=== PATIENT | male | born 1975 | race Caucasian/White ===

== ENCOUNTER 2024-01-07 09:04 | Emergency (ER) | payer OTHER, SELFPAY ==
[2024-01-07 09:09] VITALS: BP 147/107
[2024-01-07 09:33] LABS: % Basophils 0.3 % (0-2); % Eosinophils 4.1 % (0-6); % Immature Granulocytes 0.2 % (0-0.5); % Lymphocytes 20.4 % (20.5-51.1); Absolute Eosinophils 0.4 10^3/uL (0-0.7); Absolute Lymphocytes 1.8 10^3/uL (1.2-3.4); Absolute Monocytes 0.8 10^3/uL (0.1-0.6); Absolute Neutrophils 5.8 10^3/uL (1.4-6.5); Hemoglobin 15.2 g/dL (13.0-18.0); Mean Corp Hgb Conc. 35.3 g/dL (33.0-37.0); Mean Corpuscular Hgb 32.1 pg (27.0-31.0); Mean Corpuscular Volume 90.9 fL (80.0-94.0); Nucleated Red Blood Cells % 0 % (-); Platelet Count 258 10^3/uL (130-400); Red Blood Cell Count 4.73 10^6/uL (4.70-6.10); Red Cell Dist. Width 11.9 % (11.5-14.5); White Blood Cell Count 8.8 10^3/uL (4.8-10.8)
--- NOTE | 2024-01-07 09:54 | ED.GENMED ---
History of Present Illness
General
Chief Complaint: Chest Pain
Time Seen by Provider: 01/07/24 09:53
History of Present Illness
History of Present Illness:
TIME OF INITIAL ENCOUNTER: 10 AM
HPI: 2 days ago the patient started having pleuritic central chest discomfort. He does not necessarily have any shortness of breath. He has a history of high blood pressure, is a former smoker, and has an elevated BMI. His tried a DM
containing medication last night although the patient denies any significant cough or congestion. Not taking any NSAIDs. He has no PE risk factors.
EXAM:
GENERAL: Well appearing in no distress, elevated BMI noted
HEENT: Moist oral mucosa
CARDIOVASCULAR: No murmurs, normal heart rate, regular rhythm, No chest wall tenderness
PULMONARY: No respiratory distress, breath sounds are clear and equal
ABDOMEN: Soft with no peritoneal signs, no tenderness
NEUROLOGIC: Excellent strength all extremities, no coordination deficits
PSYCHIATRIC: Appropriate mental status, normal insight and judgement
EXTREMITIES: Nontender, no edema, moves all extremities equally
SKIN: No rash, no lesions
NUMBER AND COMPLEXITY OF PROBLEMS ADDRESSED AT THE ENCOUNTER
� Chronic conditions affecting care: High blood pressure
� Acute Exacerbation and/or Progression of Chronic Illness: This is an acute problem
� Differential Diagnosis includes: Musculoskeletal chest wall pain, anxiety, ACS unlikely, PE unlikely, pneumonia unlikely, malignancy unlikely
AMOUNT AND/OR COMPLEXITY OF DATA TO BE REVIEWED AND ANALYZED
� I performed an independent evaluation of and my interpretation is:
EKG: Sinus 85, no acute ST abnormality, no old to compare
CT:
X-rays: Chest x-ray unremarkable
Laboratory Studies: CBC normal, chemistries and troponin also unremarkable, D-dimer negative
Other:
� Review of other/old records: I reviewed old records, the patient had umbilical hernia repair in 2007
� Clinical information was obtained by an independent historian: I spoke to the at bedside
� Prescriptions/Medications Considered but not given:
� Further testing considered but not performed:
RISK OF COMPLICATIONS AND/OR MORBIDITY OR MORTALITY OF PATIENT MANAGEMENT
� Social determinants of health affecting care: Lives at home
� Discussion with other providers:
� Escalation of care including admission/observation vs risk of discharge considered: The patient presents with 2 days of intermittent pleuritic chest comfort. He is a former smoker.
ANY OTHER UPDATES:
12:30 PM: The patient was given Motrin earlier. I reassessed the patient. No further symptoms however the patient does have a few cardiac risk factors therefore I recommend he follows up with cardiology.
Phy Exam
Physical Exam
Physical Exam:
See HPI
Scores
Heart Score for Chest Pain Patients
STEMI patient?: Not applicable
Course
Orders/Labs/Results
Orders:
Orders
01/07/24 09:04
ECG [Electrocardiogram (*1)] Urgent
Reason for Study: Chest Pain
01/07/24 09:05
EKG- Treatment ONCE
01/07/24 09:25
Complete Blood Count/With Diff Urgent
Comprehensive Metabolic Panel Urgent
Troponin I Urgent
01/07/24 10:00
Ibuprofen [Motrin] 800 mg PO NOW STA
01/07/24 10:01
CR Chest - 2 Views Urgent
Comment:
Reason For Exam: central pleuritic pain former smoker
01/07/24 10:31
D-Dimer Urgent
Abnormal Lab Results
01/07/24
09:25
MCH 32.1 H pg
(27.0-31.0)
Absolute Monos (auto) 0.8 H 10^3/uL
(0.1-0.6)
Lymphocytes % 20.4 L %
(20.5-51.1)
Glucose 116 H mg/dl
(70-99)
01/07/24 09:25
01/07/24 09:25
Vital Signs
Initial and Last Documented VS:
Initial Vital Signs
Temp Pulse Resp BP Pulse Ox
98.3 F 92 18 147/107 99
01/07/24 09:09 01/07/24 09:09 01/07/24 09:09 01/07/24 09:09 01/07/24 09:09
Last Documented Vital Signs
Temp Pulse Resp BP Pulse Ox
98.5 F 85 23 136/81 95
01/07/24 10:10 01/07/24 12:17 01/07/24 12:17 01/07/24 12:17 01/07/24 12:17
*Critical Care Note
Total Time (30-74mins, 75-104mins- exclusive of procedures): Not Applicable
ED Attending Note
-
Portions of this chart may have been created with voice recognition software.� Occasional wrong word or��sound alike� substitutions may have occurred due to the inherent limitations of voice recognition software.
Discharge Plan
Departure
Patient Disposition: Home (Routine Discharge)
Date of Disposition: 01/07/24
Time of Disposition: 12:38
Patient with high blood pressure during this ER visit?: Yes
Discharge Problem:
Chest pain
Instructions: Chest Pain CBC Follow Up
Prescriptions:
No Action
No Current Medications
0
Referrals:
Linda Elmore MD [Family Provider] -
Terry Wilkerson MD (Ellie) [Active] - Follow up in 2-3 days
Activity Restrictions/Additional Instructions:
The cause of your symptoms is unclear. Please follow-up with your primary care doctor. I recommend 3-4 [id number] ibuprofen (Motrin) every 8 hours with food for a few days. Return here if worse. Since you do have some cardiac risk factors,
I have asked cardiology to call you for a follow-up visit.
Interventions
Interventions:
*Risk Screen - Suicide Last Done: 01/07/24 09:09
*General Assessment Last Done: 01/07/24 09:09
*Neglect/Abuse Screening Last Done: 01/07/24 09:09
ED- Fall Risk Assessment Last Done: 01/07/24 10:10
*ED COVID-19 Vaccine History Last Done: 01/07/24 10:10
ED- Cardiac Assessment Last Done: 01/07/24 10:10
Discharge Date and Time
Print Language: QATARI
[2024-01-07 10:02] LABS: Troponin I < 0.012 ng/ml
[2024-01-07 10:09] LABS: ALT (SGPT) 39 U/L (0-50); AST (SGOT) 28 U/L (17-59); Albumin 4.4 g/dl (3.5-5.0); Alkaline Phosphatase 74 U/L (38-126); Blood Urea Nitrogen 18 mg/dl (9-20); Calcium 9.5 mg/dl (8.4-10.2); Carbon Dioxide 28 mmol/L (22-30); Chloride 101 mmol/L (98-107); Glucose 116 mg/dl (70-99); Potassium 4.7 mmol/L (3.5-5.1); Sodium 141 mmol/L (135-145); Total Bilirubin 0.8 mg/dl (0.2-1.3); Total Protein 7.7 g/dl (6.3-8.2); eGFR > 60.00
[2024-01-07 10:10] VITALS: BP 135/95; BMI 38.0
[2024-01-07 11:12] LABS: D-Dimer < 0.27 ug/mlFEU (0.00-0.50)
[2024-01-07] MEDS: MOTRIN 800 MG PO (11:49)
[2024-01-07 12:17] VITALS: BP 136/81
--- NOTE | 2024-01-07 12:34 | EDRN ---
Dr. Valdez currently at the pts bedside speaking to the pt and the pts
== END 2024-01-07 13:09 | disposition home or self-care (01) ==
LOC: EMR 09:04
PROVIDERS: EMERGENCY PHYSICIAN Emergency Medicine; FAMILY PHYSICIAN Internal Medicine
DX: R07.89 Other chest pain (principal); Z87.891 Personal history of nicotine dependence
CPT/HCPCS: 99284; 71046; 80053; 84484; 85025; 85379; 93005